=== PATIENT | male | born 1975 | race Caucasian/White ===

== ENCOUNTER → 2017-05-14 | Outpatient (REF) | payer OTHER ==
[2017-05-14 10:51] LABS: BASO % 0.3 % (0.0-1.0); EOS # 0.1 K/mm3 (0.0-0.50); EOS % 1.9 % (0.0-3.0); LYMPH # 1.5 K/mm3 (1.5-4.5); LYMPH % 30.8 % (24.0-44.0); MEAN CORPUSCULAR HEMOGLOBIN 31.5 pg (27.0-33.0); MEAN CORPUSCULAR HGB CONC 34.9 g/dl (32.0-36.5); MEAN CORPUSCULAR VOLUME 90.2 fl (80.0-96.0); MONO # 0.4 K/mm3 (0.0-0.8); MONO % 7.2 % (0.0-5.0); NEUTROPHILS # 2.8 K/mm3 (1.8-7.7); NEUTROPHILS % 57.5 % (36.0-66.0); RED CELL DISTRIBUTION WIDTH 11.7 % (11.5-14.5); WHITE BLOOD COUNT 4.9 K/mm3 (4.0-10.0)
[2017-05-14 11:20] LABS: ALBUMIN/GLOBULIN RATIO 1.43 (1.00-1.93); ALKALINE PHOSPHATASE 87 U/L (45-117); ALT/SGPT 40 U/L (12-78); ANION GAP 10 MEQ/L (8-16); AST/SGOT 16 U/L (15-37); BILIRUBIN,TOTAL 0.3 MG/DL (0.2-1.0); BLOOD UREA NITROGEN 17 MG/DL (7-18); CALCIUM LEVEL 8.5 MG/DL (8.5-10.1); CARBON DIOXIDE LEVEL 26 MEQ/L (21-32); CHLORIDE LEVEL 103 MEQ/L (98-107); CHOLESTEROL LEVEL 199 MG/DL (<200); CREATININE FOR GFR 0.86 MG/DL (0.70-1.30); GLOMERULAR FILTRATION RATE > 60.0 (>60); GLUCOSE, FASTING 90 MG/DL (70-105); SODIUM LEVEL 139 MEQ/L (136-145); TOTAL PROTEIN 6.8 GM/DL (6.4-8.2); TRIGLYCERIDES LEVEL 80 MG/DL (<150)
== END ==
LOC: M LABDRAW1 10:20
PROVIDERS: ATTEND Physician Assistant Medical
DX: E78.2 Mixed hyperlipidemia (principal); E55.9 Vitamin D deficiency, unspecified; E03.9 Hypothyroidism, unspecified; F52.21 Male erectile disorder

== ENCOUNTER → 2017-08-30 | Outpatient (CLI) | payer BC, OTHER ==
--- NOTE | 2017-09-01 11:49 | SLEEPCENT ---
DATE OF PROCEDURE: 08/30/2017 REFERRING PHYSICIAN: Leigh Porter. INTERPRETATION: Nocturnal polysomnography was performed for evaluation of sleep physiology in this patient with a history of excessive somnolence and nonrestorative sleep. 6 hours and 33 minutes of data were reviewed. There were 354 minutes of sleep identified. Sleep latency was normal at 9 minutes. Rapid eye movement (REM) latency was normal at 62 minutes. Sleep architecture shows some fragmentation but sleep progression was maintained. There were five REM cycles noted. Overall sleep efficiency was 91.4%. The patient electrocardiogram showed a sinus rhythm with an average heart rate of 58 beats per minute. An EEG showed normal wave forms for awake and sleep. There were 124 respiratory events identified of 10 seconds in duration or greater for an apnea hypopnea index of 21. The events were primarily obstructive not exclusive to sleep stage. Body posture arousals from respiratory events occurred 4.6 times per hour and oxygen desaturations were seen to 80%. There was some limb activity with limb movement arousals. The remaining measures of sleep physiology were normal. IMPRESSION: Moderate obstructive sleep apnea syndrome (G47.33). Apnea hypopnea index 20.0. RECOMMENDATION: The patient should be encouraged to return to the sleep disorder center for pressure therapy. In the interim, alcohol and sedative avoidance should be practiced and caution exercised during the operation of motor vehicles.
== END ==
LOC: M SLEEP 20:00
PROVIDERS: ATTEND Nurse Practitioner Adult Health
DX: G47.33 Obstructive sleep apnea (adult) (pediatric) (principal)

== ENCOUNTER → 2017-11-14 | Outpatient (CLI) | payer BC, OTHER | LOC: M SLEEP 20:00 | DX: G47.33 Obstructive sleep apnea (adult) (pediatric) (principal) | CPT/HCPCS: 95811 ==

== ENCOUNTER → 2018-10-21 | Outpatient (REF) | payer OTHER ==
[2018-10-21 12:19] LABS: HEMATOCRIT 43.7 % (42.0-52.0); HEMOGLOBIN 14.6 g/dl (13.5-17.5); MEAN CORPUSCULAR HEMOGLOBIN 30.5 pg (27.0-33.0); MEAN CORPUSCULAR HGB CONC 33.4 g/dl (32.0-36.5); MEAN CORPUSCULAR VOLUME 91.2 fl (80.0-96.0); PLATELET COUNT, AUTOMATED 203 10^3/uL (150-450); RED BLOOD COUNT 4.79 10^6/uL (4.30-6.10); WHITE BLOOD COUNT 5.5 10^3/uL (4.0-10.0)
[2018-10-21 12:28] LABS: ALT/SGPT 38 U/L (12-78); BILIRUBIN,TOTAL 0.3 MG/DL (0.2-1.0); BLOOD UREA NITROGEN 13 MG/DL (7-18); CALCIUM LEVEL 8.5 MG/DL (8.5-10.1); CARBON DIOXIDE LEVEL 26 MEQ/L (21-32); CHLORIDE LEVEL 106 MEQ/L (98-107); CHOLESTEROL LEVEL 182 MG/DL (<200); CHOLESTEROL RISK RATIO 4.136 (<5); CREATININE FOR GFR 0.83 MG/DL (0.70-1.30); FREE T4 0.79 NG/DL (0.76-1.46); GLOMERULAR FILTRATION RATE > 60.0 (>60); GLUCOSE, FASTING 89 MG/DL (70-100); HDL CHOLESTEROL 44 MG/DL (>40); LDL CHOLESTEROL 119 MG/DL (<100); NON-HDL-C 138 MG/DL; POTASSIUM SERUM 4.5 MEQ/L (3.5-5.1); SODIUM LEVEL 136 MEQ/L (136-145); TOTAL PROTEIN 6.9 GM/DL (6.4-8.2); TRIGLYCERIDES LEVEL 96 MG/DL (<150)
[2018-10-21 12:30] LABS: TOTAL 25(OH) VITAMIN D 22.2 NG/ML (30.0-100.0)
== END ==
LOC: M SFHCADAM 08:01
PROVIDERS: ATTEND Family Medicine
DX: E78.49 Other hyperlipidemia (principal); R63.5 Abnormal weight gain; N52.9 Male erectile dysfunction, unspecified; E55.9 Vitamin D deficiency, unspecified

== ENCOUNTER → 2019-09-07 | Outpatient (CLI) | payer BC, OTHER ==
--- NOTE | 2019-09-07 18:04 | REP ---
Clinical: Fatigue. Technique: PA and lateral. Comparison: 03/31/2012. Findings: Subtle acute right lower lobe infiltrate compatible with pneumonia/atelectasis. Remainder examination is normal. Impression: Right lower lobe atelectasis/infiltrate. Follow-up to resolution recommended. Electronically Signed by Lenard Steward MD 09/07/2019 05:56 P
[2019-09-07 19:30] LABS: BASO # 0.1 10^3/uL (0.0-0.2); BASO % 0.7 % (0.0-1.0); EOS # 0.2 10^3/uL (0.0-0.5); EOS % 1.9 % (0.0-3.0); HEMATOCRIT 45.1 % (42.0-52.0); HEMOGLOBIN 14.6 g/dl (13.5-17.5); LYMPH # 2.2 10^3/uL (1.5-5.0); LYMPH % 19.3 % (24.0-44.0); MEAN CORPUSCULAR HEMOGLOBIN 30.7 pg (27.0-33.0); MEAN CORPUSCULAR HGB CONC 32.4 g/dl (32.0-36.5); MEAN CORPUSCULAR VOLUME 94.9 fl (80.0-96.0); MONO # 0.8 10^3/uL (0.0-0.8); MONO % 6.8 % (0.0-5.0); NEUTROPHILS % 69.9 % (36.0-66.0); PLATELET COUNT, AUTOMATED 419 10^3/uL (150-450); RED BLOOD COUNT 4.75 10^6/uL (4.30-6.10); WHITE BLOOD COUNT 11.4 10^3/uL (4.0-10.0)
[2019-09-07 19:42] LABS: ALBUMIN 3.8 GM/DL (3.2-5.2); ALT/SGPT 46 U/L (12-78); BILIRUBIN,TOTAL 0.3 MG/DL (0.2-1.0); BLOOD UREA NITROGEN 16 MG/DL (7-18); CALCIUM LEVEL 9.2 MG/DL (8.5-10.1); CARBON DIOXIDE LEVEL 29 MEQ/L (21-32); CHLORIDE LEVEL 106 MEQ/L (98-107); CREATININE FOR GFR 0.98 MG/DL (0.70-1.30); GLOMERULAR FILTRATION RATE > 60.0 (>60); GLUCOSE, FASTING 85 MG/DL (70-100); POTASSIUM SERUM 4.8 MEQ/L (3.5-5.1); SODIUM LEVEL 139 MEQ/L (136-145); TOTAL PROTEIN 7.8 GM/DL (6.4-8.2)
[2019-09-10 15:33] LABS: Lyme Disease IgG/IgM Antibodie <0.91 ISR (0.00-0.90); Lyme Disease IgM Ab Quantitati <0.80 index (0.00-0.79)
== END ==
LOC: M ADAMS 17:25
PROVIDERS: ATTEND Physician Assistant
DX: R05 Cough (principal); R53.83 Other fatigue; R91.8 Other nonspecific abnormal finding of lung field

== ENCOUNTER → 2019-12-20 | Outpatient (REF) | payer OTHER ==
[2019-12-20 13:14] LABS: HEMOGLOBIN 15.4 g/dl (13.5-17.5); MEAN CORPUSCULAR HEMOGLOBIN 31.1 pg (27.0-33.0); MEAN CORPUSCULAR VOLUME 88.9 fl (80.0-96.0); PLATELET COUNT, AUTOMATED 212 10^3/uL (150-450); RED BLOOD COUNT 4.95 10^6/uL (4.30-6.10); WHITE BLOOD COUNT 7.3 10^3/uL (4.0-10.0)
[2019-12-20 13:34] LABS: ALBUMIN 4.3 GM/DL (3.2-5.2); ALT/SGPT 36 U/L (12-78); BILIRUBIN,TOTAL 0.4 MG/DL (0.2-1.0); BLOOD UREA NITROGEN 20 MG/DL (7-18); CALCIUM LEVEL 9.1 MG/DL (8.5-10.1); CARBON DIOXIDE LEVEL 28 MEQ/L (21-32); CHLORIDE LEVEL 107 MEQ/L (98-107); CHOLESTEROL LEVEL 221 MG/DL (<200); CHOLESTEROL RISK RATIO 4.911 (<5); CREATININE FOR GFR 0.93 MG/DL (0.70-1.30); GLOMERULAR FILTRATION RATE > 60.0 (>60); GLUCOSE, FASTING 99 MG/DL (70-100); HDL CHOLESTEROL 45 MG/DL (>40); LDL CHOLESTEROL 155 MG/DL (<100); NON-HDL-C 176 MG/DL; SODIUM LEVEL 139 MEQ/L (136-145); TOTAL PROTEIN 7.1 GM/DL (6.4-8.2); TRIGLYCERIDES LEVEL 106 MG/DL (<150)
== END ==
LOC: M SFHCADAM 09:43
PROVIDERS: ATTEND Physician Assistant
DX: E55.9 Vitamin D deficiency, unspecified (principal); E78.49 Other hyperlipidemia

== ENCOUNTER → 2020-12-18 | Outpatient (REF) | payer OTHER ==
[2020-12-18 13:33] LABS: BASO # 0.1 10^3/uL (0.0-0.2); BASO % 0.9 % (0.0-1.0); EOS # 0.1 10^3/uL (0.0-0.5); EOS % 1.6 % (0.0-3.0); HEMATOCRIT 44.9 % (42.0-52.0); HEMOGLOBIN 14.8 g/dl (13.5-17.5); LYMPH # 1.5 10^3/uL (1.5-5.0); LYMPH % 26.4 % (24.0-44.0); MEAN CORPUSCULAR HEMOGLOBIN 30.1 pg (27.0-33.0); MEAN CORPUSCULAR VOLUME 91.3 fl (80.0-96.0); MONO # 0.5 10^3/uL (0.0-0.8); MONO % 8.8 % (2.0-8.0); NEUTROPHILS # 3.6 10^3/uL (1.5-8.5); PLATELET COUNT, AUTOMATED 217 10^3/uL (150-450); RED BLOOD COUNT 4.92 10^6/uL (4.30-6.10); WHITE BLOOD COUNT 5.8 10^3/uL (4.0-10.0)
[2020-12-18 14:12] LABS: ALBUMIN 4.3 GM/DL (3.2-5.2); ALT/SGPT 29 U/L (12-78); BILIRUBIN,TOTAL 0.3 MG/DL (0.2-1.0); BLOOD UREA NITROGEN 19 MG/DL (7-18); CALCIUM LEVEL 9.2 MG/DL (8.5-10.1); CARBON DIOXIDE LEVEL 30 MEQ/L (21-32); CHLORIDE LEVEL 107 MEQ/L (98-107); CHOLESTEROL LEVEL 213 MG/DL (<200); CHOLESTEROL RISK RATIO 4.437 (<5); CREATININE FOR GFR 1.08 MG/DL (0.70-1.30); GLOMERULAR FILTRATION RATE > 60.0 (>60); GLUCOSE, FASTING 93 MG/DL (70-100); HDL CHOLESTEROL 48 MG/DL (>40); LDL CHOLESTEROL 143 MG/DL (<100); NON-HDL-C 165 MG/DL; POTASSIUM SERUM 4.4 MEQ/L (3.5-5.1); SODIUM LEVEL 140 MEQ/L (136-145); TOTAL PROTEIN 7.3 GM/DL (6.4-8.2); TRIGLYCERIDES LEVEL 110 MG/DL (<150)
== END ==
LOC: M SFHCADAM 10:04
PROVIDERS: ATTEND Physician Assistant
DX: Z00.00 Encounter for general adult medical examination without abnormal findings (principal); E55.9 Vitamin D deficiency, unspecified; E78.00 Pure hypercholesterolemia, unspecified; G47.33 Obstructive sleep apnea (adult) (pediatric); Z13.1 Encounter for screening for diabetes mellitus

== ENCOUNTER → 2022-10-17 | Outpatient (CLI) | payer BC, OTHER | LOC: M RAD 14:13 | PROVIDERS: ATTEND Physician Assistant | DX: R05.9 Cough, unspecified (principal); Z86.16 Personal history of COVID-19 ==

== ENCOUNTER → 2023-08-13 | Outpatient (REF) | payer BC, OTHER ==
[2023-08-13 12:36] LABS: INR 1.12; PROTHROMBIN TIME 14.1 SECONDS (12.5-14.5)
[2023-08-13 12:37] LABS: HEMATOCRIT 47.4 % (42.0-52.0); HEMOGLOBIN 16.3 g/dl (13.5-17.5); MEAN CORPUSCULAR HEMOGLOBIN 31.7 pg (27.0-33.0); MEAN CORPUSCULAR HGB CONC 34.4 g/dl (32.0-36.5); MEAN CORPUSCULAR VOLUME 92.2 fl (80.0-96.0); PARTIAL THROMBOPLASTIN TIME 32.9 SECONDS (24.8-34.2); PLATELET COUNT, AUTOMATED 227 10^3/uL (150-450); RED BLOOD COUNT 5.14 10^6/uL (4.30-6.10); WHITE BLOOD COUNT 6.1 10^3/uL (4.0-10.0)
[2023-08-13 12:53] LABS: ALBUMIN 4.1 G/DL (3.2-5.2); ALKALINE PHOSPHATASE 76 U/L (46-116); ALT/SGPT 36 U/L (7.0-40); AST/SGOT 19 U/L (<34); BILIRUBIN,TOTAL 0.6 MG/DL (0.3-1.2); BLOOD UREA NITROGEN 20 MG/DL (9-23); CALCIUM LEVEL 9.1 MG/DL (8.5-10.1); CARBON DIOXIDE LEVEL 26 MMOL/L (20-31); CHLORIDE LEVEL 106 MMOL/L (98-107); CHOLESTEROL LEVEL 239 MG/DL (<200); CREATININE FOR GFR 1.03 MG/DL (0.70-1.30); FREE T4 0.82 NG/DL (0.89-1.76); GLOMERULAR FILTRATION RATE > 60.0 (>60); GLUCOSE, FASTING 87 MG/DL (60-100); MAGNESIUM LEVEL 2.2 MG/DL (1.8-2.4); POTASSIUM SERUM 4.5 MMOL/L (3.5-5.1); SODIUM LEVEL 139 MMOL/L (136-145); THYROID STIMULATING HORMONE 4.777 uIU/ML (0.55-4.78); TOTAL PROTEIN 6.8 G/DL (5.7-8.2); TRIGLYCERIDES LEVEL 177 MG/DL (<150)
[2023-08-13 13:40] LABS: CHOLESTEROL RISK RATIO 5.53 (<5); HDL CHOLESTEROL 43.2 MG/DL (>40); LDL CHOLESTEROL 160.4 MG/DL (<100); NON-HDL-C 195.8 MG/DL
== END ==
LOC: M SFHCADAM 09:07
PROVIDERS: ATTEND Physician Assistant
DX: Z00.00 Encounter for general adult medical examination without abnormal findings (principal); G47.33 Obstructive sleep apnea (adult) (pediatric); E78.00 Pure hypercholesterolemia, unspecified; E55.9 Vitamin D deficiency, unspecified; Z12.11 Encounter for screening for malignant neoplasm of colon; I48.91 Unspecified atrial fibrillation

== ENCOUNTER → 2023-10-13 | Outpatient (CLI) | payer BC, OTHER | LOC: M CARPUL 09:26 | PROVIDERS: ATTEND Physician Assistant | DX: I48.91 Unspecified atrial fibrillation (principal) ==

== ENCOUNTER → 2023-12-23 | Outpatient (CLI) | payer BC | LOC: M SLEEP HO 12-22 11:08 | PROVIDERS: ATTEND Nurse Practitioner Adult Health | DX: G47.33 Obstructive sleep apnea (adult) (pediatric) (principal) ==

== ENCOUNTER → 2024-01-17 | Outpatient (CLI) | payer BC | LOC: M SLEEP 20:00 | PROVIDERS: ATTEND Nurse Practitioner Adult Health | DX: G47.33 Obstructive sleep apnea (adult) (pediatric) (principal) ==

== ENCOUNTER → 2024-06-29 | Outpatient (REF) | payer BC ==
[2024-06-29 18:44] LABS: HEMATOCRIT 48.2 % (42.0-52.0); HEMOGLOBIN 15.9 g/dl (13.5-17.5); MEAN CORPUSCULAR HEMOGLOBIN 31.4 pg (27.0-33.0); MEAN CORPUSCULAR VOLUME 95.1 fl (80.0-96.0); PLATELET COUNT, AUTOMATED 228 10^3/uL (150-450); RED BLOOD COUNT 5.07 10^6/uL (4.30-6.10); WHITE BLOOD COUNT 9.6 10^3/uL (4.0-10.0)
[2024-06-29 19:11] LABS: PSA SCREENING 0.94 NG/ML (< 4.00)
[2024-06-29 19:19] LABS: ALBUMIN 4.3 G/DL (3.2-5.2); ALKALINE PHOSPHATASE 77 U/L (46-116); ALT/SGPT 21 U/L (7.0-40); AST/SGOT 10 U/L (<34); BILIRUBIN,TOTAL 0.7 MG/DL (0.3-1.2); BLOOD UREA NITROGEN 19 MG/DL (9-23); CALCIUM LEVEL 10.1 MG/DL (8.5-10.1); CARBON DIOXIDE LEVEL 27 MMOL/L (20-31); CHLORIDE LEVEL 107 MMOL/L (98-107); CHOLESTEROL LEVEL 170 MG/DL (<200); CHOLESTEROL RISK RATIO 5.16 (<5); CREATININE FOR GFR 1.17 MG/DL (0.70-1.30); GLOMERULAR FILTRATION RATE > 60.0 (>56); GLUCOSE, FASTING 79 MG/DL (60-100); HDL CHOLESTEROL 32.9 MG/DL (>40); LDL CHOLESTEROL 108.5 MG/DL (<100); NON-HDL-C 137.1 MG/DL; POTASSIUM SERUM 4.2 MMOL/L (3.5-5.1); SODIUM LEVEL 140 MMOL/L (136-145); TOTAL PROTEIN 7.2 G/DL (5.7-8.2); TRIGLYCERIDES LEVEL 143 MG/DL (<150)
== END ==
LOC: M SFHCADAM 12:24
PROVIDERS: ATTEND Physician Assistant
DX: E78.00 Pure hypercholesterolemia, unspecified (principal); I48.91 Unspecified atrial fibrillation; G47.33 Obstructive sleep apnea (adult) (pediatric); Z12.5 Encounter for screening for malignant neoplasm of prostate
CPT/HCPCS: 80053; 80061; 85027; G0103

== ENCOUNTER → 2024-08-18 | Outpatient (REF) | payer BC ==
[2024-08-18 13:00] LABS: BASO % 0.5 % (0.0-1.0); EOS # 0.1 10^3/uL (0.0-0.5); EOS % 1.9 % (0.0-3.0); HEMATOCRIT 42.9 % (42.0-52.0); HEMOGLOBIN 14.5 g/dl (13.5-17.5); LYMPH # 1.8 10^3/uL (1.5-5.0); LYMPH % 23.6 % (24.0-44.0); MEAN CORPUSCULAR HEMOGLOBIN 31.5 pg (27.0-33.0); MEAN CORPUSCULAR HGB CONC 33.8 g/dl (32.0-36.5); MEAN CORPUSCULAR VOLUME 93.1 fl (80.0-96.0); MONO # 0.7 10^3/uL (0.0-0.8); MONO % 9.7 % (2.0-8.0); NEUTROPHILS # 4.7 10^3/uL (1.5-8.5); NEUTROPHILS % 63.9 % (36.0-66.0); PLATELET COUNT, AUTOMATED 211 10^3/uL (150-450); RED BLOOD COUNT 4.61 10^6/uL (4.30-6.10); WHITE BLOOD COUNT 7.4 10^3/uL (4.0-10.0)
[2024-08-18 13:01] LABS: BLOOD UREA NITROGEN 14 MG/DL (9-23); CALCIUM LEVEL 9.4 MG/DL (8.5-10.1); CARBON DIOXIDE LEVEL 29 MMOL/L (20-31); CHLORIDE LEVEL 106 MMOL/L (98-107); CREATININE FOR GFR 1.09 MG/DL (0.70-1.30); GLOMERULAR FILTRATION RATE > 60.0 (>56); GLUCOSE, FASTING 91 MG/DL (60-100); POTASSIUM SERUM 4.3 MMOL/L (3.5-5.1); SODIUM LEVEL 141 MMOL/L (136-145)
== END ==
LOC: M LABDRWAD 12:27
PROVIDERS: ATTEND Internal Medicine Cardiovascular Disease
DX: I48.11 Longstanding persistent atrial fibrillation (principal); Z79.01 Long term (current) use of anticoagulants

== ENCOUNTER → 2024-10-26 | Outpatient (REF) | payer BC | LOC: M SFHCADAM 17:40 | PROVIDERS: ATTEND Physician Assistant | DX: Z53.9 Procedure and treatment not carried out, unspecified reason (principal) ==

== ENCOUNTER → 2025-04-28 | Outpatient (CLI) | payer BC | LOC: M SLEEP HO 11:28 | PROVIDERS: ATTEND Nurse Practitioner Adult Health | DX: G47.33 Obstructive sleep apnea (adult) (pediatric) (principal) ==